=== PATIENT | female | born 1985 | race Caucasian/White ===

== ENCOUNTER 2016-07-13 11:36 | Emergency (ER) | payer MEDICAID ==
[~2016-07-13] VITALS: Ht 175.3 cm; Wt 65.8 kg
[~2016-07-13 11:36] MED LIST: CIPRO 500MG TA500 MG PO; ZITHROMAX Z PA250 MG PO
--- NOTE | 2016-07-13 11:52 | Urgent Treatment Center Report ---
History of Present Issue Date/Time Seen by Provider 07/13/16 1152 Visit Reason Pt arrived:Walked Presenting Problem:PT STATES CHEST CONGESTION, HEADACHE, SINUS PRESSURE, DRAINAGE, COUGH WITH GREEN SPUTUM, BODY ACHES THAT BEGAN TUESDAY. STATES TESTING NEG FOR FLU ON TUESDAY BUT CONTINUES TO FEEL BAD. DENIES VOMITING OR DIARRHEA Location if Accident: Onset of symptoms date/time:07/10/16/ or onset unknown for:MEDICAL HX UNKNOWN Have you (or family members/close friends) recently traveled outside the [facility]? N If Yes, where/when: Have you had exposure to infectious disease within the past month? TB? Other? Specify: c/o nasal congestion, cough and aching. "I need to go back to work and want to be sure I am not contagious." Reporting sudden onset fever, bodyaches, chills, cough, nasal congestion starting suddenly on Tuesday, 3 days ago. Was seen at [facility] in [place]. Negative for flu then. Dx COOKIE and prescribed tamiflu but pharmacies were sold out and felt too bad to drive to [place]. Nyquil/dayquil helping some. Wheezing better and fever only low grade now. Denies SOA, wheezing. 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 No Angina: No [place]: No Hypertension? No Hyperlipidemia? No CHF? No DVT? No PE? No COPD? No Asthma? No Anemia? No GERD? No Gastric ulcers? No GI Bleed? No Hernia? No Thyroid Problems? No Hypothyroidism? No CVA? No Seizures? No Diabetes? No Renal Insuffiency? No UTI? No GB Disease: No Nephritic Syndrome? No Asplenia? No Hepatitis? No Sickle Cell Disease? No Arthritis? No Migraines? No Cataracts? No Glaucoma? No MRSA? No HIV? No TB? No Anxiety? No Depression? No Cancer? No Immunization HX DT/Tetanus 1-4 Years Ago Surgical Hx Previous Surgery?Y X 3 ORAL SURGERY [employer]NING [employer]ER Hx LMP N/A Family History Family HX Diabetes Yes CAD No Hypertension Yes Hyperlipidemia No Cancer No TB No Social History Smoking Hx Smoker: Current Every Day Smoker Tobacco: Yes Type Cigarettes Packs/day < 1 Pack Alcohol Alcohol: No Review of Systems All Other Systems Reviewed and Negative Constitutional see HPI Eyes denies no symptoms reported ENT see HPI. denies: ear pain, ear discharge. Respiratory see HPI Cardiovascular denies chest pain Gastrointestinal denies abdominal pain, denies diarrhea, denies nausea, denies vomiting Musculoskeletal see HPI Skin denies rash Psychiatric/Neurological see HPI Physical Exam Vital Signs Vital Signs Date Time Temp Pulse Resp B/P Pulse O2 O2 Flow FiO2 Ox Delivery Rate 07/13 1146 98.9 88 18 118/68 100 General Appearance normal appearance, no apparent distress Eye Exam - bilateral eye normal exam Ear, Nose, Throat normal ENT inspection Neck non-tender, supple Respiratory Status No: respiratory distress, non productive cough. Lung Sounds anterior: lungs clear. posterior: lungs clear. bilateral: lungs clear. Cardiovascular regular rate/rhythm, no murmur Neurologic alert Skin warm/dry Lymphatic no adenopathy (cervical) Medical Decision Making LABS/Meds/Orders Pt receiving controlled substance in ED? No Results/Orders Laboratory Tests 07/13/16 1150: Influenza Type A Ag DETECTED H, Influenza Type B Ag NOT DETECTED Orders Procedure Date/time Status [facility] FLU A,B 07/13 1150 Complete Departure Departure Time of Disposition 1228 Disposition DC Home or Self Care(routine) Clinical Impression Primary Impression: Influenza A Condition STABLE Patient Instructions DI for Influenza -- Adult Additional Instructions Increase fluids Lots of rest Alternate tylenol/ibuprofen as discussed. Check amount in dayquil/nyquil if taking that as well Flonase or nasal saline for nasal congestion Continue mucinex you are contagious until you have had no fever, aches, chills x 24 hours without medication Return to work Tuesday. FU immediately for new or worsening symptoms or if no noticeable improvement over the next 3-4 days. Discharge Counseling Counseled pt/family regarding diagnosis, test results, medications/RX, home care, follow up needs at 1231
--- NOTE | 2016-07-13 11:52 | Urgent Treatment Center Report ---
History of Present Issue Date/Time Seen by Provider 07/13/16 1152 Visit Reason Pt arrived:Walked Presenting Problem:PT STATES CHEST CONGESTION, HEADACHE, SINUS PRESSURE, DRAINAGE, COUGH WITH GREEN SPUTUM, BODY ACHES THAT BEGAN TUESDAY. STATES TESTING NEG FOR FLU ON TUESDAY BUT CONTINUES TO FEEL BAD. DENIES VOMITING OR DIARRHEA Location if Accident: Onset of symptoms date/time:07/10/16/ or onset unknown for:MEDICAL HX UNKNOWN Have you (or family members/close friends) recently traveled outside the [facility]? N If Yes, where/when: Have you had exposure to infectious disease within the past month? TB? Other? Specify: c/o nasal congestion, cough and aching. "I need to go back to work and want to be sure I am not contagious." Reporting sudden onset fever, bodyaches, chills, cough, nasal congestion starting suddenly on Tuesday, 3 days ago. Was seen at [facility] in [place]. Negative for flu then. Dx [facility]IE and prescribed tamiflu but pharmacies were sold out and felt too bad to drive to [place]. Nyquil/dayquil helping some. Wheezing better and fever only low grade now. Denies SOA, wheezing. 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 No Angina: No [place]: No Hypertension? No Hyperlipidemia? No CHF? No DVT? No PE? No COPD? No Asthma? No Anemia? No GERD? No Gastric ulcers? No GI Bleed? No Hernia? No Thyroid Problems? No Hypothyroidism? No CVA? No Seizures? No Diabetes? No Renal Insuffiency? No UTI? No GB Disease: No Nephritic Syndrome? No Asplenia? No Hepatitis? No Sickle Cell Disease? No Arthritis? No Migraines? No Cataracts? No Glaucoma? No MRSA? No HIV? No TB? No Anxiety? No Depression? No Cancer? 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 denies: ear pain, ear discharge. Respiratory see HPI Cardiovascular denies chest pain Gastrointestinal denies abdominal pain, denies diarrhea, denies nausea, denies vomiting Musculoskeletal see HPI Skin denies rash Psychiatric/Neurological see HPI Physical Exam Vital Signs Vital Signs Date Time Temp Pulse Resp B/P Pulse O2 O2 Flow FiO2 Ox Delivery Rate 07/13 1146 98.9 88 18 118/68 100 General Appearance normal appearance, no apparent distress Eye Exam - bilateral eye normal exam Ear, Nose, Throat normal ENT inspection Neck non-tender, supple Respiratory Status No: respiratory distress, non productive cough. Lung Sounds anterior: lungs clear. posterior: lungs clear. bilateral: lungs clear. Cardiovascular regular rate/rhythm, no murmur Neurologic alert Skin warm/dry Lymphatic no adenopathy (cervical) Medical Decision Making LABS/Meds/Orders Pt receiving controlled substance in ED? No Results/Orders Laboratory Tests 07/13/16 1150: Influenza Type A Ag DETECTED H, Influenza Type B Ag NOT DETECTED Orders Procedure Date/time Status [facility] FLU A,B 07/13 1150 Complete Departure Departure Time of Disposition 1228 Disposition DC Home or Self Care(routine) Clinical Impression Primary Impression: Influenza A Condition STABLE Patient Instructions DI for Influenza -- Adult Additional Instructions Increase fluids Lots of rest Alternate tylenol/ibuprofen as discussed. Check amount in dayquil/nyquil if taking that as well Flonase or nasal saline for nasal congestion Continue mucinex you are contagious until you have had no fever, aches, chills x 24 hours without medication Return to work Tuesday. FU immediately for new or worsening symptoms or if no noticeable improvement over the next 3-4 days. Discharge Counseling Counseled pt/family regarding diagnosis, test results, medications/RX, home care, follow up needs at 1231
[2016-07-13 12:37] VITALS: BP 120/72
== END 2016-07-13 12:38 | disposition home or self-care (01) ==
LOC: UTC 11:36
DX: J10.1 Influenza due to other identified influenza virus with other respiratory manifestations (principal)

== ENCOUNTER 2016-07-19 12:32 | Emergency (ER) | payer MEDICAID ==
[~2016-07-19] VITALS: Ht 175.3 cm; Wt 65.8 kg
--- NOTE | 2016-07-19 12:54 | Urgent Treatment Center Report ---
History of Present Issue Date/Time Seen by Provider 07/19/16 1243 Visit Reason Pt arrived:Walked Presenting Problem:PT TESTED POSITIVE FOR FLU ABOUT 9 DAYS AGO AND IS STILL NOT FEELING WELL Location if Accident: Onset of symptoms date/time:/ or onset unknown for:MEDICAL HX UNKNOWN Have you (or family members/close friends) recently traveled outside the [place]? N If Yes, where/when: Have you had exposure to infectious disease within the past month? TB? Other? Specify: Patient states that she was diagnosed with the flu a couple weeks ago, states that she was treated with Tamiflu and began to feel better then her children began to test positive for the flu and she provided care for them, now she is feeling ill again just like she did then and having fever, body aches sore throat and left ear pain ALLERGIES Coded Allergies: Penicillins (07/13/16) History Medical History General CAD? No Angina: No [place]: No Hypertension? No Hyperlipidemia? No CHF? No DVT? No PE? No COPD? No Asthma? No Anemia? No GERD? No Gastric ulcers? No GI Bleed? No Hernia? No Thyroid Problems? No Hypothyroidism? No CVA? No Seizures? No Diabetes? No Renal Insuffiency? No UTI? No GB Disease: No Nephritic Syndrome? No Asplenia? No Hepatitis? No Sickle Cell Disease? No Arthritis? No Migraines? No Cataracts? No Glaucoma? No MRSA? No HIV? No TB? No Anxiety? No Depression? No Cancer? No Immunization HX DT/Tetanus 1-4 Years Ago Surgical Hx Previous Surgery?Y X 3 ORAL SURGERY Family History Family HX Diabetes Yes CAD No Hypertension Yes Hyperlipidemia No Cancer No TB No Social History Smoking Hx Smoker: Current Every Day Smoker Tobacco: Yes Type Cigarettes Packs/day < 1 Pack Alcohol Alcohol: No Review of Systems All Other Systems Reviewed and Negative ENT ear pain, nose discharge, nose congestion, throat pain. Respiratory cough Physical Exam Vital Signs Vital Signs Date Time Temp Pulse Resp B/P Pulse O2 O2 Flow FiO2 Ox Delivery Rate 07/19 1237 98.2 100 16 96 General Appearance normal appearance Ear, Nose, Throat sinus pain/drainage, nasal congestion, tonsillar exudate, tonsillar swelling, left ear bright red, TM cloudy buldging Respiratory Status Yes: trachea midline, chest symmetrical, non tender chest. No: respiratory distress. Cardiovascular normal exam, no peripheral edema, no gallop, no JVD Neurologic alert, normal exam Medical Decision Making LABS/Meds/Orders Pt receiving controlled substance in ED? No Results/Orders Laboratory Tests 07/19/16 1305: Influenza Type A Ag NOT DETECTED, Influenza Type B Ag NOT DETECTED, Group A Strep Screen NOT DETECTED Orders Procedure Date/time Status [facility] STREP SCREEN 07/19 1305 Complete [facility] FLU A,B 07/19 1305 Complete Departure Departure Time of Disposition 1302 Disposition DC Home or Self Care(routine) Clinical Impression Primary Impression: Otitis media Qualifiers: Otitis media type: unspecified Laterality: left Chronicity: unspecified Qualified Code: H66.92 - Otitis media, unspecified, left ear Condition STABLE Patient Instructions DI for Otitis Media (Middle Ear Infection)-Child Additional Instructions Warm compress on ear to help with pain Over the counter Motrin or Tylenol as needed for pain Follow up family doctor Discharge Counseling Counseled pt/family regarding diagnosis, test results, medications/RX, home care Prescriptions Current Visit Scripts Azithromycin (Zithromycin (Z-LETHA) 250MG Tab) 250 MG PO DAILY #6 TAB TAKE TWO (2) TABLETS ON DAY 1, THEN ONE (1) TABLET DAY #2 THRU #5 Prednisone (Prednisone 20MG) 20 MG PO BID #10 TAB at 1308
[2016-07-19 13:06] LABS: UTC STREP SCREEN NOT DETECTED (NOTDETECTED)
[2016-07-19] MEDS ORDERED: PREDNISONE 20MG20 MG PO (13:07)
[2016-07-19] MEDS ORDERED: ZITHROMAX Z PA250 MG PO (13:07)
[2016-07-19 13:13] VITALS: BP 92/57
== END 2016-07-19 13:14 | disposition home or self-care (01) ==
LOC: UTC 12:32
PROVIDERS: Nurse Practitioner
DX: H66.92 Otitis media, unspecified, left ear (principal)